=== PATIENT | female | born 1975 | race Caucasian/White ===

== ENCOUNTER 2021-05-10 16:26 | Emergency (ER) | payer BC ==
[~2021-05-10] VITALS: Ht 157.5 cm; Wt 68.0 kg
[2021-05-10] MEDS ORDERED: MORPHINE SULFATE 4 MG/1 ML DISP.SYRIN IM ONE (16:45)
[2021-05-10] MEDS ORDERED: ONDANSETRON ODT 4 MG TAB.RAPDIS SL ONE (16:45)
[2021-05-10] MEDS ORDERED: IV NORMAL SALINE 1000 ML BAG IV ONE (17:15)
[2021-05-10] MEDS ORDERED: MORPHINE SULFATE 2 MG/1 ML DISP.SYRIN IV ONE (17:15)
[2021-05-10] MEDS ORDERED: ONDANSETRON 4 MG/2 ML VIAL IV ONE (17:15)
[2021-05-10] MEDS ORDERED: MORPHINE SULFATE 4 MG/1 ML DISP.SYRIN ONE (17:30)
[2021-05-10] MEDS ORDERED: ONDANSETRON 4 MG/2 ML VIAL ONE (17:34)
[2021-05-10 17:45] LABS: HEMATOCRIT 40.8 % (31.2-41.9); MEAN CORPUSCULAR VOLUME 93.4 fL (75.5-95.3); PLATELET COUNT (AUTO) 337 K/uL (179-408)
[2021-05-10 18:00] LABS: CREATININE 0.9 mg/dL (0.6-1.3); POTASSIUM 3.7 mmol/L (3.5-5.1)
[2021-05-10 18:06] LABS: BILIRUBIN,DIRECT 0.1 mg/dL (0.0-0.2); BILIRUBIN,TOTAL 0.2 mg/dL (0.2-1.0); TOTAL PROTEIN, SERUM 7.6 g/dL (6.4-8.2)
[2021-05-10] MEDS ORDERED: SWABABLE VALVE TRANSFER SET EA MC ONE (18:10)
[2021-05-10] MEDS ORDERED: IV NORMAL SALINE 250 ML IV ONE (18:10)
[2021-05-10] MEDS ORDERED: IOHEXOL 350 100 ML INFUS..BTL ONE (18:10)
[2021-05-10] MEDS ORDERED: IBUPROFEN 600 MG TABLET PO ONE (19:00)
[2021-05-10] MEDS ORDERED: diphenhydrAMINE 50 MG/1 ML VIAL IV ONE (19:00)
[2021-05-10] MEDS ORDERED: METOCLOPRAMIDE HCL 10 MG/2 ML VIAL IV ONE (19:00)
[2021-05-10] MEDS ORDERED: METOCLOPRAMIDE HCL 10 MG/2 ML VIAL ONE (19:18)
[2021-05-10] MEDS ORDERED: diphenhydrAMINE 50 MG/1 ML VIAL ONE (19:18)
[2021-05-10] MEDS ORDERED: IBUPROFEN 600 MG TABLET ONE (19:18)
[2021-05-10] MEDS ORDERED: ACET-2154 PO (20:54)
[2021-05-10] MEDS ORDERED: METO-295 PO (20:54)
--- NOTE | 2021-05-10 21:30 | NUR ---
IV removed. Catheter intact and site benign. Pressure and 4x4 gauze applied to site. No bleeding noted.
--- NOTE | 2021-05-10 21:35 | NUR ---
Patient discharged to home in stable condition. Written and verbal after care instructions given. Patient verbalizes understanding of instructions. Stressed follow up or return to ER for worsening s/s.
[2021-05-10 21:57] VITALS: BP 112/73
== END 2021-05-10 21:35 | disposition home or self-care (01) ==
LOC: ER 16:31
DX: R51.9 Headache, unspecified (principal)
CPT/HCPCS: 36415; 70450; 70496; 80048; 80076; 85025; 85730; 93880; 96361; 96374; 96375; 99285; J1200; J2270; J2405; J2765; Q9967; A4663; J7030; J7050

== ENCOUNTER 2021-07-18 20:36 | Emergency (ER) | payer BC ==
[~2021-07-18] VITALS: Ht 154.9 cm; Wt 69.9 kg
[~2021-07-18 20:36] MED LIST: ACET-2154 PO; METO-295 PO
--- NOTE | 2021-07-18 20:42 | NUR ---
PT AMBULATED TO ER C/O N/V/D AND MIGRAINES X5 DAYS SEEN AT AN URGENT CARE 07/17/21. PT IS A/O X4, NO SOB OR LABORED BREATHING, DENIES CP/PRESSURE. CLEAR SPEECH, COMPLETE SENTENCES DR. GARCIA AT BEDSIDE, MSE IN PROGRESS.
[2021-07-18] MEDS ORDERED: HYDROMORPHONE 1 MG/1 ML DISP.SYRIN IV ONE (21:00)
[2021-07-18] MEDS ORDERED: METOCLOPRAMIDE HCL 10 MG/2 ML VIAL IV ONE (21:00)
[2021-07-18] MEDS ORDERED: DICYCLOMINE HCL LIQ 10 MG/5 ML UDC PO ONE (21:00)
[2021-07-18] MEDS ORDERED: DIPHENOXYLATE HCL/ATROP SULF TABLET PO ONE (21:00)
[2021-07-18] MEDS ORDERED: ONDANSETRON 4 MG/2 ML VIAL IV ONE (21:00)
[2021-07-18] MEDS ORDERED: METOCLOPRAMIDE HCL 10 MG/2 ML VIAL ONE (21:10)
[2021-07-18] MEDS ORDERED: DICYCLOMINE HCL LIQ 10 MG/5 ML UDC ONE (21:11)
[2021-07-18] MEDS ORDERED: DIPHENOXYLATE HCL/ATROP SULF TABLET ONE (21:11)
[2021-07-18] MEDS ORDERED: HYDROMORPHONE 1 MG/1 ML DISP.SYRIN ONE (21:11)
--- NOTE | 2021-07-18 21:15 | NUR ---
PT IN BED, RESTING COMFORTABLY, DENIES ANY N/V. BREATHING EVEN AND UNLABORED.
[2021-07-18 21:18] LABS: HEMATOCRIT 37.3 % (31.2-41.9); MEAN CORPUSCULAR HEMOGLOBIN 32.1 uug (24.7-32.8); MEAN CORPUSCULAR VOLUME 94.6 fL (75.5-95.3); PLATELET COUNT (AUTO) 272 K/uL (179-408)
[2021-07-18 21:24] LABS: CREATININE 0.9 mg/dL (0.6-1.3); POTASSIUM 4.1 mmol/L (3.5-5.1)
[2021-07-18 21:30] LABS: BILIRUBIN,DIRECT 0.1 mg/dL (0.0-0.2); BILIRUBIN,TOTAL 0.4 mg/dL (0.2-1.0); TOTAL PROTEIN, SERUM 6.5 g/dL (6.4-8.2)
[2021-07-18] MEDS ORDERED: DICY20TA11 PO (21:51)
[2021-07-18] MEDS ORDERED: ONDA4TAB5 PO (21:51)
[2021-07-18] MEDS ORDERED: HYDR-3980 PO (21:58)
[2021-07-18] MEDS ORDERED: DEXAMETHASONE SOD PHOSPHATE 4 MG INJ IV ONE (22:00)
[2021-07-18] MEDS ORDERED: DEXAMETHASONE SOD PHOSPHATE 10 MG INJ ONE (22:12)
--- NOTE | 2021-07-18 22:23 | NUR ---
Patient discharged to home in stable condition. Written and verbal after care instructions given. Patient verbalizes understanding of instructions. Stressed follow up or return to ER for worsening s/s. Steady gait, no N/V/D. Denies any GRIDER/dizzyness. Accompanied by significant other.
[2021-07-18 22:26] VITALS: BP 113/60
== END 2021-07-18 22:34 | disposition home or self-care (01) ==
LOC: ER 20:43
DX: G43.909 Migraine, unspecified, not intractable, without status migrainosus (principal); R19.7 Diarrhea, unspecified; R11.2 Nausea with vomiting, unspecified
CPT/HCPCS: 36415; 80048; 80076; 83690; 85025; 96374; 96375; 99284; J1100; J1170; J2765; A4663